=== PATIENT | female | born 1990 | race Caucasian/White ===

== ENCOUNTER 2017-05-23 14:35 | Emergency (ER) | payer MEDICAID ==
[~2017-05-23] VITALS: Ht 152.4 cm; Wt 51.8 kg
[2017-05-23 15:34] VITALS: BP 127/63
== END 2017-05-23 15:36 | disposition home or self-care (01) ==
LOC: EMS 14:38
DX: Z02.89 Encounter for other administrative examinations (principal); F12.90 Cannabis use, unspecified, uncomplicated; F17.210 Nicotine dependence, cigarettes, uncomplicated
CPT/HCPCS: 99283

== ENCOUNTER 2018-06-25 02:15 | Inpatient (IN) | payer MEDICAID ==
[~2018-06-25] VITALS: Ht 157.5 cm; Wt 50.0 kg
[2018-06-25] MEDS ORDERED: LORazepam 2 MG/ML VIAL IM ONE (03:00)
[2018-06-25] MEDS ORDERED: HALOPERIDOL LACTATE 5 MG/ML VIAL IM ONE (03:00)
[2018-06-25] MEDS ORDERED: DiphenhydrAMINE HCL 50 MG/ML VIAL IM ONE (03:00)
[2018-06-25] MEDS ORDERED: ZOLPIDEM TARTRATE 10 MG TABLET PO PRN (03:15)
[2018-06-25] MEDS ORDERED: HALOPERIDOL 5 MG TABLET PO PRN (03:15)
[2018-06-25 04:31] LABS: BASOPHILS % (AUTO) 0.6 % (0.0-2.0); EOSINOPHILS % (AUTO) 1.3 % (1.0-6.0); HEMATOCRIT 40.7 % (36-46); HEMOGLOBIN 13.7 g/dL (12.0-16.0); LYMPHOCYTES # (AUTO) 2.2 K/uL (1.0-4.8); MEAN CORPUSCULAR HEMOGLOBIN 31.8 pg (26.0-34.0); MEAN CORPUSCULAR HGB CONC 33.6 G/dL (31.0-37.0); MEAN CORPUSCULAR VOLUME 94 fL (80-100); MONOCYTES # (AUTO) 0.6 K/uL (0.1-1.0); MONOCYTES % (AUTO) 5.4 % (2.0-9.0); NEUTROPHILS # (AUTO) 7.7 K/uL (1.8-7.7); NEUTROPHILS % (AUTO) 71.7 % (40.0-70.0); PLATELET COUNT (AUTO) 242 K/uL (150-450); RED BLOOD CELL COUNT(AUTO) 4.32 MIL/uL (4.00-5.20); RED CELL DISTRIBUTION WIDTH 13.1 % (11.5-14.5)
[2018-06-25 04:39] LABS: ANION GAP 8 mmol/L (8-16); CALCIUM, TOTAL 8.9 mg/dL (8.8-10.5); CARBON DIOXIDE 25 mmol/L (22-29); CHLORIDE 105 mmol/L (98-107); CREATININE 0.79 mg/dL (0.60-1.30); GLOMERULAR FILTR. RATE CALC > 60 mL/min (>60); GLUCOSE,RANDOM 93 mg/dL (70-110); POTASSIUM 3.8 mmol/L (3.5-5.1); SODIUM SERUM 138 mmol/L (136-145); UREA NITROGEN, BLOOD 14 mg/dL (7-18)
[2018-06-25 04:46] LABS: ALANINE AMINOTRANSFERASE 16 U/L (12-78); ALBUMIN 3.4 g/dL (3.4-5.0); ALKALINE PHOSPHATASE 100 U/L (46-116); ASPARTATE AMINOTRANSFERASE 18 U/L (15-37); BILIRUBIN,TOTAL 0.5 mg/dL (0.1-1.0); TOTAL PROTEIN, SERUM 6.4 g/dL (6.4-8.2)
[2018-06-25 18:11] VITALS: BP 103/69
[2018-06-25] MEDS ORDERED: GuaiFENesin/D-METHORPHAN [SUGAR-FREE] 200-20MG/10 ML SYRUP UDCUP PO PRN (18:45)
[2018-06-25] MEDS ORDERED: MAG HYDROX/AL HYDROX/SIMETH ES 30 ML SUSPENSION UDCUP PO PRN (18:45)
[2018-06-25] MEDS ORDERED: NICOTINE 14 MG/24 HOUR PATCH TD PRN (18:45)
[2018-06-25] MEDS ORDERED: CloNIDine HCL 0.1 MG TABLET PO PRN (18:45)
[2018-06-25] MEDS ORDERED: LOPERAMIDE HCL 2 MG CAPSULE PO PRN (18:45)
[2018-06-25] MEDS ORDERED: ALBUTEROL SULFATE HFA 90 MCG/PUFF 8 GM INHALER IH PRN (18:45)
[2018-06-25] MEDS ORDERED: MAGNESIUM HYDROXIDE SUSPENSION 30 ML UDCUP PO PRN (18:45)
[2018-06-25] MEDS ORDERED: DOCUSATE SODIUM 100 MG CAPSULE PO PRN (18:45)
[2018-06-25] MEDS ORDERED: PETROLATUM,WHITE 71 GM JELLY TP PRN (18:45)
[2018-06-25] MEDS ORDERED: ONDANSETRON HCL 4 MG TABLET PO PRN (18:45)
[2018-06-25] MEDS ORDERED: ACETAMINOPHEN 325 MG TABLET PO PRN (18:45)
[2018-06-27] MEDS ORDERED: LORazepam 2 MG/ML VIAL ONE (09:55)
[2018-06-27] MEDS ORDERED: HALOPERIDOL LACTATE 5 MG/ML VIAL IM ONE (10:00)
[2018-06-27] MEDS ORDERED: LORazepam 2 MG/ML VIAL IM ONE (10:00)
[2018-06-27] MEDS ORDERED: DiphenhydrAMINE HCL 50 MG/ML VIAL IM ONE (10:00)
[2018-06-27] MEDS: OLANZapine 5 MG RAPDIS TABLET PO SCH (21:00)
[2018-06-28] MEDS: LORazepam 2 MG TABLET PO PRN (09:12)
[2018-06-28] MEDS: OLANZapine 5 MG RAPDIS TABLET PO PRN (09:18)
[2018-06-28] MEDS: OLANZapine 5 MG RAPDIS TABLET PO SCH (21:00)
[2018-06-29] MEDS: BACITRACIN 28.4 GM OINTMENT TP SCH ×3 (08:30→16:15)
[2018-06-29] MEDS: LORazepam 2 MG TABLET PO PRN ×2 (08:40→16:14)
[2018-06-29] MEDS: OLANZapine 5 MG RAPDIS TABLET PO PRN (08:40)
[2018-06-29] MEDS: OLANZapine 5 MG RAPDIS TABLET PO SCH (22:21)
[2018-06-30] MEDS: IBUPROFEN 400 MG TABLET PO PRN (01:00)
[2018-06-30] MEDS: LORazepam 2 MG TABLET PO PRN ×2 (08:07→14:13)
[2018-06-30] MEDS: OLANZapine 5 MG RAPDIS TABLET PO PRN ×2 (08:09→14:13)
[2018-06-30] MEDS: BACITRACIN 28.4 GM OINTMENT TP SCH ×2 (09:00→16:25)
[2018-06-30 10:08] LABS: APPEARANCE,URINE CLOUDY (CLEAR); BILIRUBIN,URINE NEGATIVE (NEGATIVE); GLUCOSE, URINE (UA) NEGATIVE (NEGATIVE); KETONES,URINE NEGATIVE (NEGATIVE); LEUKOCYTE ESTERASE ,URINE TRACE (NEGATIVE); NITRATE,URINE NEGATIVE (NEGATIVE); OCCULT BLOOD,URINE NEGATIVE (NEGATIVE); PROTEIN,URINE NEGATIVE (NEGATIVE); UROBILINOGEN,URINE 0.2 mg/dL (<=1.0)
[2018-06-30 10:12] LABS: AMPHET/METH SCREEN,URINE NEGATIVE (NEGATIVE); BARBITURATE SCREEN, URINE NEGATIVE (NEGATIVE); BENZODIAZEPINES SCREEN,URINE NEGATIVE (NEGATIVE); CANNABINOID SCREEN,URINE POSITIVE (NEGATIVE); COCAINE SCREEN,URINE NEGATIVE (NEGATIVE); METHADONE SCREEN, URINE NEGATIVE (NEGATIVE); OPIATE SCREEN,URINE NEGATIVE (NEGATIVE); PHENCYCLIDINE SCREEN,URINE NEGATIVE (NEGATIVE)
[2018-06-30 10:26] LABS: BACTERIA,URINE None Seen /HPF (None Seen); RBC,URINE None Seen /HPF (0-2); SQUAMOUS EPITHELIAL CELL,UR Many /LPF (None Seen); WBC,URINE 0-2 /HPF (0-5)
[2018-06-30 16:50] VITALS: BP 91/76
[2018-06-30] MEDS: OLANZapine 5 MG RAPDIS TABLET PO SCH (20:18)
[2018-07-01] MEDS: BACITRACIN 28.4 GM OINTMENT TP SCH ×2 (08:49→16:37)
[2018-07-01] MEDS: LORazepam 2 MG TABLET PO PRN ×2 (08:51→16:50)
[2018-07-01] MEDS: OLANZapine 5 MG RAPDIS TABLET PO PRN ×2 (08:51→16:50)
[2018-07-01 08:58] VITALS: BP 112/60
[2018-07-01 18:02] VITALS: BP 115/76
[2018-07-01] MEDS: OLANZapine 5 MG RAPDIS TABLET PO SCH (20:33)
[2018-07-02] MEDS: BACITRACIN 28.4 GM OINTMENT TP SCH ×2 (08:26→17:12)
[2018-07-02] MEDS: OLANZapine 5 MG RAPDIS TABLET PO PRN ×2 (08:45→16:01)
[2018-07-02] MEDS: LORazepam 2 MG TABLET PO PRN ×2 (08:45→16:01)
[2018-07-02 17:07] VITALS: BP 121/68
[2018-07-02] MEDS: OLANZapine 5 MG RAPDIS TABLET PO SCH (20:35)
[2018-07-03] MEDS: OLANZapine 5 MG RAPDIS TABLET PO PRN ×2 (08:28→16:58)
[2018-07-03] MEDS: NALTREXONE HCL 50 MG TABLET PO SCH (08:28)
[2018-07-03] MEDS: LORazepam 2 MG TABLET PO PRN ×2 (08:28→16:57)
[2018-07-03 08:31] VITALS: BP 115/71
[2018-07-03] MEDS: BACITRACIN 28.4 GM OINTMENT TP SCH ×2 (09:00→16:59)
[2018-07-03] MEDS: IBUPROFEN 400 MG TABLET PO PRN (09:47)
[2018-07-03 16:54] VITALS: BP 109/67
[2018-07-03] MEDS: OLANZapine 10 MG RAPDIS TABLET PO SCH (20:13)
[2018-07-04] MEDS: LORazepam 2 MG TABLET PO PRN ×2 (07:46→17:52)
[2018-07-04] MEDS: OLANZapine 5 MG RAPDIS TABLET PO PRN (07:46)
[2018-07-04] MEDS: IBUPROFEN 400 MG TABLET PO PRN (08:10)
[2018-07-04] MEDS: NALTREXONE HCL 50 MG TABLET PO SCH (08:10)
[2018-07-04] MEDS: BACITRACIN 28.4 GM OINTMENT TP SCH ×2 (09:12→16:30)
[2018-07-04 17:51] VITALS: BP 107/67
[2018-07-04] MEDS: OLANZapine 10 MG RAPDIS TABLET PO SCH (20:15)
[2018-07-05 08:41] VITALS: BP 108/60
[2018-07-05] MEDS: NALTREXONE HCL 50 MG TABLET PO SCH (09:00)
[2018-07-05] MEDS: BACITRACIN 28.4 GM OINTMENT TP SCH ×2 (09:00→16:12)
[2018-07-05] MEDS: LORazepam 2 MG TABLET PO PRN (16:11)
[2018-07-05 16:19] VITALS: BP 100/65
[2018-07-05] MEDS ORDERED: OLAN10TA22 PO (16:23)
[2018-07-05] MEDS ORDERED: NALT50TA PO (16:23)
[2018-07-05] MEDS: OLANZapine 10 MG RAPDIS TABLET PO SCH (20:39)
[2018-07-06 08:00] VITALS: BP 104/68
[2018-07-06] MEDS: NALTREXONE HCL 50 MG TABLET PO SCH (08:05)
[2018-07-06] MEDS: OLANZapine 5 MG RAPDIS TABLET PO PRN (08:05)
[2018-07-06] MEDS: LORazepam 2 MG TABLET PO PRN (08:05)
[2018-07-06] MEDS: BACITRACIN 28.4 GM OINTMENT TP SCH (10:45)
== END 2018-07-06 13:00 | disposition home or self-care (01) | DRG 750 ==
LOC: EMS 02:16 → 3EC 16:32
PROVIDERS: ADMIT Psychiatry & Neurology Psychiatry; ATTEND Psychiatry & Neurology Psychiatry
DX: F20.0 Paranoid schizophrenia (principal); Z91.19 Patient's noncompliance with other medical treatment and regimen; F10.10 Alcohol abuse, uncomplicated; G47.00 Insomnia, unspecified; F12.90 Cannabis use, unspecified, uncomplicated; F19.10 Other psychoactive substance abuse, uncomplicated; Z71.41 Alcohol abuse counseling and surveillance of alcoholic; Z81.8 Family history of other mental and behavioral disorders; Z87.891 Personal history of nicotine dependence; Z71.51 Drug abuse counseling and surveillance of drug abuser
CPT/HCPCS: 96372; 99291; G0480; J1200; J1630; J2060

== ENCOUNTER 2018-07-07 19:18 | Emergency (ER) | payer MEDICAID ==
[~2018-07-07] VITALS: Ht 152.4 cm; Wt 45.5 kg
[~2018-07-07 19:18] MED LIST: NALT50TA PO; OLAN10TA22 PO
[2018-07-07 19:29] VITALS: BP 139/84
== END 2018-07-07 19:58 | disposition home or self-care (01) ==
LOC: EMS 19:20
DX: F25.9 Schizoaffective disorder, unspecified (principal); F17.210 Nicotine dependence, cigarettes, uncomplicated; F19.10 Other psychoactive substance abuse, uncomplicated; Z79.899 Other long term (current) drug therapy
CPT/HCPCS: 99281

== ENCOUNTER 2018-07-15 14:14 | Emergency (ER) | payer MEDICAID | END 2018-07-15 14:41 | disposition left against medical advice (07) | LOC: EMS 14:16 | DX: R22.0 Localized swelling, mass and lump, head (principal); Z53.21 Procedure and treatment not carried out due to patient leaving prior to being seen by health care provider ==

== ENCOUNTER 2018-07-17 01:10 | Emergency (ER) | payer MEDICAID ==
[~2018-07-17] VITALS: Ht 152.4 cm; Wt 48.2 kg
[2018-07-17 01:11] VITALS: BP 124/88
== END 2018-07-17 03:02 | disposition left against medical advice (07) ==
LOC: EMS 01:10
DX: R68.84 Jaw pain (principal); Z53.21 Procedure and treatment not carried out due to patient leaving prior to being seen by health care provider

== ENCOUNTER 2019-12-21 15:08 | Emergency (ER) | payer MEDICAID ==
[~2019-12-21] VITALS: Ht 160 cm; Wt 52.0 kg
[~2019-12-21 15:08] MED LIST changes: -NALT50TA PO; -OLAN10TA22 PO; +OLAN7.5T9 PO
[2019-12-21 15:16] VITALS: BP 115/85
== END 2019-12-21 16:23 | disposition left against medical advice (07) ==
LOC: EMS 15:10
DX: M79.673 Pain in unspecified foot (principal); Z53.21 Procedure and treatment not carried out due to patient leaving prior to being seen by health care provider

== ENCOUNTER 2020-01-17 10:41 | Inpatient (IN) | payer MEDICAID ==
[~2020-01-17] VITALS: Ht 149.9 cm; Wt 45.5 kg
[2020-01-17] MEDS ORDERED: LORazepam 2 MG/ML VIAL IM ONE (11:45)
[2020-01-17] MEDS ORDERED: ZOLPIDEM TARTRATE 10 MG TABLET PO PRN (12:30)
[2020-01-17] MEDS ORDERED: OLANZapine 5 MG RAPDIS TABLET PO PRN (12:30)
[2020-01-17 14:21] VITALS: BP 134/84
[2020-01-17 16:18] VITALS: BP 157/97
[2020-01-17] MEDS: LORazepam 2 MG TABLET PO PRN (16:18)
[2020-01-18] MEDS ORDERED: LOPERAMIDE HCL 2 MG CAPSULE PO PRN (14:15)
[2020-01-18] MEDS ORDERED: ACETAMINOPHEN 325 MG TABLET PO PRN (14:15)
[2020-01-18] MEDS ORDERED: ONDANSETRON HCL 4 MG TABLET PO PRN (14:15)
[2020-01-18] MEDS ORDERED: ALBUTEROL SULFATE HFA 90 MCG/PUFF 8 GM INHALER IH PRN (14:15)
[2020-01-18] MEDS ORDERED: MAG HYDROX/AL HYDROX/SIMETH ES 30 ML SUSPENSION UDCUP PO PRN (14:15)
[2020-01-18] MEDS ORDERED: OMEPRAZOLE 20 MG CAPSULE PO PRN (14:15)
[2020-01-18] MEDS ORDERED: MAGNESIUM HYDROXIDE SUSPENSION 30 ML UDCUP PO PRN (14:15)
[2020-01-18] MEDS ORDERED: PETROLATUM,WHITE 28 GM JELLY TP PRN (14:15)
[2020-01-18] MEDS ORDERED: CloNIDine HCL 0.1 MG TABLET PO PRN (14:15)
[2020-01-18] MEDS ORDERED: DOCUSATE SODIUM 100 MG CAPSULE PO PRN (14:15)
[2020-01-18] MEDS ORDERED: IBUPROFEN 600 MG TABLET PO PRN (14:15)
[2020-01-18] MEDS ORDERED: BENZOCAINE/MENTHOL LOZENGE MM PRN (14:15)
[2020-01-18] MEDS ORDERED: BACITRACIN 28.4 GM OINTMENT TP PRN (14:15)
[2020-01-18] MEDS: LORazepam 2 MG TABLET PO PRN (15:48)
[2020-01-18] MEDS: OLANZapine 5 MG TABLET PO SCH (16:42)
[2020-01-18] MEDS: CEPHALEXIN MONOHYDRATE 500 MG CAPSULE PO SCH (16:42)
[2020-01-19] MEDS: CEPHALEXIN MONOHYDRATE 500 MG CAPSULE PO SCH ×3 (09:22→17:13)
[2020-01-19] MEDS: OLANZapine 5 MG TABLET PO SCH ×2 (09:22→17:13)
[2020-01-19 16:35] VITALS: BP 136/82
[2020-01-20] MEDS: CEPHALEXIN MONOHYDRATE 500 MG CAPSULE PO SCH ×2 (08:07→12:21)
[2020-01-20] MEDS: OLANZapine 5 MG TABLET PO SCH (08:07)
[2020-01-20] MEDS ORDERED: OLAN5TAB2 PO (10:43)
[2020-01-20] MEDS ORDERED: CEPH-582 PO (10:45)
[2020-01-20 11:48] VITALS: BP 103/71
== END 2020-01-20 14:00 | disposition home or self-care (01) | DRG 885 ==
LOC: EMS 10:48 → 3EC 12:51
PROVIDERS: ADMIT Psychiatry & Neurology Psychiatry; ATTEND Psychiatry & Neurology Psychiatry
DX: F25.9 Schizoaffective disorder, unspecified (principal); F15.10 Other stimulant abuse, uncomplicated; F11.90 Opioid use, unspecified, uncomplicated; F17.210 Nicotine dependence, cigarettes, uncomplicated; K59.00 Constipation, unspecified; F41.9 Anxiety disorder, unspecified; Z59.0 Homelessness; Z88.8 Allergy status to other drugs, medicaments and biological substances
CPT/HCPCS: 99291; J2060

== ENCOUNTER 2020-01-29 12:02 | Inpatient (IN) | payer MEDICAID ==
[~2020-01-29] VITALS: Ht 149.9 cm; Wt 48.9 kg
[~2020-01-29 12:02] MED LIST changes: +CEPH-582 PO; +OLAN5TAB2 PO; -OLAN7.5T9 PO
[2020-01-29] MEDS ORDERED: LORazepam 2 MG/ML VIAL IM ONE (13:15)
[2020-01-29] MEDS ORDERED: DiphenhydrAMINE HCL 50 MG/ML VIAL IM ONE (13:15)
[2020-01-29] MEDS ORDERED: FluPHENAZine HCL 2.5 MG/ML INJ IM ONE (13:15)
[2020-01-29] MEDS ORDERED: ZOLPIDEM TARTRATE 10 MG TABLET PO PRN (14:45)
[2020-01-29] MEDS ORDERED: OLANZapine 5 MG RAPDIS TABLET PO PRN (14:45)
[2020-01-29 16:08] LABS: BASOPHILS % (AUTO) 0.4 % (0.0-2.0); EOSINOPHILS % (AUTO) 0.4 % (1.0-6.0); HEMATOCRIT 37.9 % (36-46); HEMOGLOBIN 12.6 g/dL (12.0-16.0); LYMPHOCYTES # (AUTO) 2.5 K/uL (1.0-4.8); LYMPHOCYTES % (AUTO) 31.3 % (22.0-44.0); MEAN CORPUSCULAR HEMOGLOBIN 31.4 pg (26.0-34.0); MEAN CORPUSCULAR HGB CONC 33.1 G/dL (31.0-37.0); MEAN CORPUSCULAR VOLUME 95 fL (80-100); MONOCYTES # (AUTO) 0.6 K/uL (0.1-1.0); MONOCYTES % (AUTO) 7.4 % (2.0-9.0); NEUTROPHILS # (AUTO) 4.9 K/uL (1.8-7.7); NEUTROPHILS % (AUTO) 60.5 % (40.0-70.0); PLATELET COUNT (AUTO) 263 K/uL (150-450)
[2020-01-29 16:17] LABS: ANION GAP 17 mmol/L (8-16); CALCIUM, TOTAL 8.7 mg/dL (8.8-10.5); CARBON DIOXIDE 19 mmol/L (22-29); CHLORIDE 103 mmol/L (98-107); CREATININE 0.69 mg/dL (0.60-1.30); GLOMERULAR FILTR. RATE CALC > 60 mL/min (>60); GLUCOSE,RANDOM 71 mg/dL (70-110); POTASSIUM 3.3 mmol/L (3.5-5.1); SODIUM SERUM 139 mmol/L (136-145); UREA NITROGEN, BLOOD 8 mg/dL (7-18)
[2020-01-29 16:29] LABS: ALANINE AMINOTRANSFERASE 18 U/L (12-78); ALBUMIN 3.9 g/dL (3.4-5.0); ALKALINE PHOSPHATASE 69 U/L (46-116); ASPARTATE AMINOTRANSFERASE 18 U/L (15-37); HCG,QUANTITATIVE < 1 mIU/mL (0-6); TOTAL PROTEIN, SERUM 7.1 g/dL (6.4-8.2)
[2020-01-29 18:24] VITALS: BP 99/60
[2020-01-29] MEDS: OLANZapine 5 MG TABLET PO SCH (22:23)
[2020-01-29] MEDS: CEPHALEXIN MONOHYDRATE 500 MG CAPSULE PO SCH (22:23)
[2020-01-30] MEDS ORDERED: MAGNESIUM HYDROXIDE SUSPENSION 30 ML UDCUP PO PRN (05:15)
[2020-01-30] MEDS ORDERED: ALBUTEROL SULFATE HFA 90 MCG/PUFF 8 GM INHALER IH PRN (05:15)
[2020-01-30] MEDS ORDERED: ONDANSETRON HCL 4 MG TABLET PO PRN (05:15)
[2020-01-30] MEDS ORDERED: BACITRACIN 28.4 GM OINTMENT TP PRN (05:15)
[2020-01-30] MEDS ORDERED: IBUPROFEN 600 MG TABLET PO PRN (05:15)
[2020-01-30] MEDS ORDERED: BENZOCAINE/MENTHOL LOZENGE MM PRN (05:15)
[2020-01-30] MEDS ORDERED: LOPERAMIDE HCL 2 MG CAPSULE PO PRN (05:15)
[2020-01-30] MEDS ORDERED: CloNIDine HCL 0.1 MG TABLET PO PRN (05:15)
[2020-01-30] MEDS ORDERED: MAG HYDROX/AL HYDROX/SIMETH ES 30 ML SUSPENSION UDCUP PO PRN (05:15)
[2020-01-30] MEDS ORDERED: PETROLATUM,WHITE 28 GM JELLY TP PRN (05:15)
[2020-01-30] MEDS ORDERED: ACETAMINOPHEN 325 MG TABLET PO PRN (05:15)
[2020-01-30] MEDS: CEPHALEXIN MONOHYDRATE 500 MG CAPSULE PO SCH ×3 (08:24→16:18)
[2020-01-30] MEDS: DOCUSATE SODIUM 100 MG CAPSULE PO SCH (08:24)
[2020-01-30] MEDS: OMEPRAZOLE 20 MG CAPSULE PO SCH (08:24)
[2020-01-30] MEDS: OLANZapine 5 MG TABLET PO SCH ×2 (08:35→16:18)
[2020-01-30] MEDS ORDERED: POTASSIUM CHLORIDE 20 MEQ ER TABLET PO ONE (15:30)
[2020-01-31] MEDS: OLANZapine 5 MG TABLET PO SCH ×2 (09:39→16:37)
[2020-01-31] MEDS: DOCUSATE SODIUM 100 MG CAPSULE PO SCH (09:39)
[2020-01-31] MEDS: OMEPRAZOLE 20 MG CAPSULE PO SCH (09:39)
[2020-01-31] MEDS: CEPHALEXIN MONOHYDRATE 500 MG CAPSULE PO SCH ×3 (09:39→16:37)
[2020-02-01] MEDS: OMEPRAZOLE 20 MG CAPSULE PO SCH (09:50)
[2020-02-01] MEDS: CEPHALEXIN MONOHYDRATE 500 MG CAPSULE PO SCH ×3 (09:50→16:23)
[2020-02-01] MEDS: DOCUSATE SODIUM 100 MG CAPSULE PO SCH (09:50)
[2020-02-01] MEDS: OLANZapine 5 MG TABLET PO SCH ×2 (09:51→16:23)
[2020-02-01] MEDS: LORazepam 2 MG TABLET PO PRN (10:27)
[2020-02-01 11:21] VITALS: BP 133/71
[2020-02-01 16:00] VITALS: BP 110/73
[2020-02-02] MEDS: DOCUSATE SODIUM 100 MG CAPSULE PO SCH (08:32)
[2020-02-02] MEDS: OLANZapine 5 MG TABLET PO SCH ×2 (08:32→16:08)
[2020-02-02] MEDS: CEPHALEXIN MONOHYDRATE 500 MG CAPSULE PO SCH ×3 (08:32→16:08)
[2020-02-02] MEDS: OMEPRAZOLE 20 MG CAPSULE PO SCH (08:32)
[2020-02-02 08:45] VITALS: BP 117/60
[2020-02-02 08:50] VITALS: BP 116/70
[2020-02-02] MEDS: LORazepam 2 MG TABLET PO PRN ×2 (08:51→17:03)
[2020-02-02 18:25] VITALS: BP 119/61
[2020-02-03] MEDS: DOCUSATE SODIUM 100 MG CAPSULE PO SCH (08:34)
[2020-02-03] MEDS: OMEPRAZOLE 20 MG CAPSULE PO SCH (08:34)
[2020-02-03] MEDS: CEPHALEXIN MONOHYDRATE 500 MG CAPSULE PO SCH ×3 (08:34→16:29)
[2020-02-03] MEDS: OLANZapine 5 MG TABLET PO SCH (08:34)
[2020-02-03] MEDS: LORazepam 2 MG TABLET PO PRN (09:15)
[2020-02-03 09:39] VITALS: BP 123/63
[2020-02-03] MEDS: GABAPENTIN 300 MG CAPSULE PO SCH (16:29)
[2020-02-03] MEDS: OLANZapine 7.5 MG TABLET PO SCH (16:29)
[2020-02-04] MEDS: LORazepam 2 MG TABLET PO PRN (08:43)
[2020-02-04] MEDS: OLANZapine 7.5 MG TABLET PO SCH ×2 (08:43→16:30)
[2020-02-04] MEDS: CEPHALEXIN MONOHYDRATE 500 MG CAPSULE PO SCH ×3 (08:43→16:30)
[2020-02-04] MEDS: OMEPRAZOLE 20 MG CAPSULE PO SCH (08:43)
[2020-02-04] MEDS: GABAPENTIN 300 MG CAPSULE PO SCH ×2 (08:43→16:30)
[2020-02-04] MEDS: DOCUSATE SODIUM 100 MG CAPSULE PO SCH (08:43)
[2020-02-04 16:19] VITALS: BP 96/62
[2020-02-05] MEDS: OLANZapine 7.5 MG TABLET PO SCH ×2 (07:56→16:45)
[2020-02-05] MEDS: OMEPRAZOLE 20 MG CAPSULE PO SCH (07:56)
[2020-02-05] MEDS: GABAPENTIN 300 MG CAPSULE PO SCH ×2 (07:56→16:44)
[2020-02-05] MEDS: DOCUSATE SODIUM 100 MG CAPSULE PO SCH (07:56)
[2020-02-05] MEDS: CEPHALEXIN MONOHYDRATE 500 MG CAPSULE PO SCH ×2 (07:56→12:00)
[2020-02-05] MEDS: LORazepam 2 MG TABLET PO PRN (07:56)
[2020-02-05 09:16] VITALS: BP 90/53
[2020-02-05 17:13] VITALS: BP 96/69
[2020-02-05 17:51] VITALS: BP 102/66
[2020-02-06] MEDS: GABAPENTIN 300 MG CAPSULE PO SCH ×2 (08:18→16:56)
[2020-02-06] MEDS: OMEPRAZOLE 20 MG CAPSULE PO SCH (08:18)
[2020-02-06] MEDS: THIAMINE 100 MG TABLET PO SCH (08:18)
[2020-02-06] MEDS: MULTIVITAMINS WITH MINERALS, THERAPEUTIC TABLET PO SCH (08:18)
[2020-02-06] MEDS: FOLIC ACID 1 MG TABLET PO SCH (08:18)
[2020-02-06] MEDS: DOCUSATE SODIUM 100 MG CAPSULE PO SCH (08:18)
[2020-02-06] MEDS: LORazepam 2 MG TABLET PO PRN (08:19)
[2020-02-06] MEDS: OLANZapine 7.5 MG TABLET PO SCH ×2 (08:19→16:56)
[2020-02-06 13:04] VITALS: BP 101/66
[2020-02-06 19:16] VITALS: BP 113/62
[2020-02-07 08:00] VITALS: BP 108/61
[2020-02-07] MEDS: MULTIVITAMINS WITH MINERALS, THERAPEUTIC TABLET PO SCH (08:04)
[2020-02-07] MEDS: OMEPRAZOLE 20 MG CAPSULE PO SCH (08:04)
[2020-02-07] MEDS: FOLIC ACID 1 MG TABLET PO SCH (08:04)
[2020-02-07] MEDS: THIAMINE 100 MG TABLET PO SCH (08:04)
[2020-02-07] MEDS: OLANZapine 7.5 MG TABLET PO SCH ×2 (08:04→16:13)
[2020-02-07] MEDS: DOCUSATE SODIUM 100 MG CAPSULE PO SCH (08:04)
[2020-02-07] MEDS: GABAPENTIN 300 MG CAPSULE PO SCH ×2 (08:04→16:13)
[2020-02-07 20:50] VITALS: BP 123/71
[2020-02-08] MEDS: OMEPRAZOLE 20 MG CAPSULE PO SCH (08:35)
[2020-02-08] MEDS: MULTIVITAMINS WITH MINERALS, THERAPEUTIC TABLET PO SCH (08:35)
[2020-02-08] MEDS: THIAMINE 100 MG TABLET PO SCH (08:35)
[2020-02-08] MEDS: GABAPENTIN 300 MG CAPSULE PO SCH ×2 (08:35→16:13)
[2020-02-08] MEDS: OLANZapine 7.5 MG TABLET PO SCH ×2 (08:35→16:13)
[2020-02-08] MEDS: FOLIC ACID 1 MG TABLET PO SCH (08:35)
[2020-02-08] MEDS: DOCUSATE SODIUM 100 MG CAPSULE PO SCH (08:35)
[2020-02-08 09:44] VITALS: BP 107/63
[2020-02-09] MEDS: GABAPENTIN 300 MG CAPSULE PO SCH ×2 (08:55→16:48)
[2020-02-09] MEDS: OMEPRAZOLE 20 MG CAPSULE PO SCH (08:55)
[2020-02-09] MEDS: FOLIC ACID 1 MG TABLET PO SCH (08:55)
[2020-02-09] MEDS: OLANZapine 7.5 MG TABLET PO SCH ×2 (08:55→16:48)
[2020-02-09] MEDS: MULTIVITAMINS WITH MINERALS, THERAPEUTIC TABLET PO SCH (08:55)
[2020-02-09] MEDS: THIAMINE 100 MG TABLET PO SCH (08:56)
[2020-02-09] MEDS: DOCUSATE SODIUM 100 MG CAPSULE PO SCH (08:56)
[2020-02-09 10:06] VITALS: BP 120/74
[2020-02-09 19:30] VITALS: BP 111/64
[2020-02-10 08:00] VITALS: BP 106/48
[2020-02-10] MEDS: MULTIVITAMINS WITH MINERALS, THERAPEUTIC TABLET PO SCH (08:38)
[2020-02-10] MEDS: FOLIC ACID 1 MG TABLET PO SCH (08:38)
[2020-02-10] MEDS: THIAMINE 100 MG TABLET PO SCH (08:38)
[2020-02-10] MEDS: OMEPRAZOLE 20 MG CAPSULE PO SCH (08:38)
[2020-02-10] MEDS: DOCUSATE SODIUM 100 MG CAPSULE PO SCH (08:38)
[2020-02-10] MEDS: GABAPENTIN 300 MG CAPSULE PO SCH (08:38)
[2020-02-10] MEDS: OLANZapine 7.5 MG TABLET PO SCH (08:38)
[2020-02-10] MEDS ORDERED: GABA-1181 PO (13:08)
[2020-02-10] MEDS ORDERED: OLAN7.5T2 PO (13:08)
[2020-02-10] MEDS ORDERED: DOCU-275 PO (13:09)
[2020-02-10] MEDS ORDERED: THIA100T80 PO (13:16)
[2020-02-10] MEDS ORDERED: OMEP20 PO (13:17)
== END 2020-02-10 14:51 | disposition home or self-care (01) | DRG 885 ==
LOC: EMS 12:02 → 3EC 16:13
PROVIDERS: ADMIT Psychiatry & Neurology Psychiatry; ATTEND Psychiatry & Neurology Psychiatry
DX: F25.0 Schizoaffective disorder, bipolar type (principal); Z88.8 Allergy status to other drugs, medicaments and biological substances; F10.20 Alcohol dependence, uncomplicated; F15.10 Other stimulant abuse, uncomplicated; F11.90 Opioid use, unspecified, uncomplicated; F17.210 Nicotine dependence, cigarettes, uncomplicated; F41.9 Anxiety disorder, unspecified; K59.00 Constipation, unspecified; F19.10 Other psychoactive substance abuse, uncomplicated; E87.6 Hypokalemia; G47.00 Insomnia, unspecified; Z59.0 Homelessness; Z91.19 Patient's noncompliance with other medical treatment and regimen; Z91.14 Patient's other noncompliance with medication regimen; Z91.5 Personal history of self-harm; Y90.9 Presence of alcohol in blood, level not specified
CPT/HCPCS: 87081; 99291; G0480; J1200; J2060; J3490

== ENCOUNTER 2020-04-23 20:10 | Inpatient (IN) | payer MEDICAID ==
[~2020-04-23 20:10] MED LIST changes: -CEPH-582 PO; +DOCU-275 PO; +GABA-1181 PO; -OLAN5TAB2 PO; +OLAN7.5T2 PO; +OMEP20 PO; +THIA100T80 PO
[2020-04-23] MEDS ORDERED: ZOLPIDEM TARTRATE 10 MG TABLET PO PRN (22:15)
[2020-04-23 22:23] VITALS: BP 103/60
[2020-04-24 01:33] VITALS: BP 105/72
[2020-04-24] MEDS ORDERED: LOPERAMIDE HCL 2 MG CAPSULE PO PRN (07:00)
[2020-04-24] MEDS ORDERED: PETROLATUM,WHITE 28 GM JELLY TP PRN (07:00)
[2020-04-24] MEDS ORDERED: ONDANSETRON HCL 4 MG TABLET PO PRN (07:00)
[2020-04-24] MEDS ORDERED: MAGNESIUM HYDROXIDE SUSPENSION 30 ML UDCUP PO PRN (07:00)
[2020-04-24] MEDS ORDERED: BACITRACIN 28.4 GM OINTMENT TP PRN (07:00)
[2020-04-24] MEDS ORDERED: CloNIDine HCL 0.1 MG TABLET PO PRN (07:00)
[2020-04-24] MEDS ORDERED: BENZOCAINE/MENTHOL LOZENGE MM PRN (07:00)
[2020-04-24] MEDS ORDERED: IBUPROFEN 600 MG TABLET PO PRN (07:00)
[2020-04-24] MEDS ORDERED: MAG HYDROX/AL HYDROX/SIMETH ES 30 ML SUSPENSION UDCUP PO PRN (07:00)
[2020-04-24] MEDS ORDERED: ALBUTEROL SULFATE HFA 90 MCG/PUFF 8 GM INHALER IH PRN (07:00)
[2020-04-24] MEDS ORDERED: OMEPRAZOLE 20 MG CAPSULE PO PRN (07:00)
[2020-04-24] MEDS ORDERED: ACETAMINOPHEN 325 MG TABLET PO PRN (07:00)
[2020-04-24] MEDS ORDERED: DOCUSATE SODIUM 100 MG CAPSULE PO PRN (07:00)
[2020-04-24 08:23] VITALS: BP 116/68
[2020-04-24] MEDS: SULFAMETHOX/TRIMETH DS 800-160 MG/TABLET PO SCH ×2 (09:41→16:41)
[2020-04-24] MEDS: MUPIROCIN CALCIUM 2% 15 GM CREAM TP SCH ×2 (10:02→16:41)
[2020-04-24] MEDS: LORazepam 2 MG TABLET PO PRN (10:07)
[2020-04-24] MEDS: OLANZapine 7.5 MG TABLET PO SCH ×2 (13:15→16:41)
[2020-04-24] MEDS: GABAPENTIN 300 MG CAPSULE PO SCH ×2 (13:15→16:41)
[2020-04-25] MEDS: OLANZapine 7.5 MG TABLET PO SCH ×2 (09:04→17:03)
[2020-04-25] MEDS: SULFAMETHOX/TRIMETH DS 800-160 MG/TABLET PO SCH ×2 (09:04→17:02)
[2020-04-25] MEDS: GABAPENTIN 300 MG CAPSULE PO SCH ×2 (09:04→17:02)
[2020-04-25] MEDS: MUPIROCIN CALCIUM 2% 15 GM CREAM TP SCH ×2 (09:05→17:02)
[2020-04-25] MEDS: LORazepam 2 MG TABLET PO PRN ×2 (09:17→17:03)
[2020-04-26 03:54] VITALS: BP 102/74
[2020-04-26] MEDS: MUPIROCIN CALCIUM 2% 15 GM CREAM TP SCH ×2 (09:00→17:08)
[2020-04-26] MEDS: GABAPENTIN 300 MG CAPSULE PO SCH ×2 (09:26→17:39)
[2020-04-26] MEDS: OLANZapine 7.5 MG TABLET PO SCH ×2 (09:26→17:39)
[2020-04-26] MEDS: SULFAMETHOX/TRIMETH DS 800-160 MG/TABLET PO SCH ×2 (09:26→17:10)
[2020-04-26] MEDS: QUEtiapine FUMARATE 100 MG TABLET PO PRN (10:42)
[2020-04-26] MEDS: LORazepam 2 MG TABLET PO PRN ×2 (10:42→17:10)
[2020-04-27 02:02] VITALS: BP 110/70
[2020-04-27] MEDS: OLANZapine 7.5 MG TABLET PO SCH ×2 (08:59→16:01)
[2020-04-27] MEDS: MUPIROCIN CALCIUM 2% 15 GM CREAM TP SCH ×2 (08:59→17:00)
[2020-04-27] MEDS: GABAPENTIN 300 MG CAPSULE PO SCH ×2 (08:59→16:00)
[2020-04-27] MEDS: SULFAMETHOX/TRIMETH DS 800-160 MG/TABLET PO SCH ×2 (08:59→16:00)
[2020-04-27] MEDS: LORazepam 2 MG TABLET PO PRN ×2 (09:05→16:00)
[2020-04-27 17:56] VITALS: BP 98/63
[2020-04-27] MEDS: QUEtiapine FUMARATE 100 MG TABLET PO PRN (17:56)
[2020-04-28 01:19] VITALS: BP 102/68
[2020-04-28 08:00] VITALS: BP 116/74
[2020-04-28] MEDS: OLANZapine 7.5 MG TABLET PO SCH (08:13)
[2020-04-28] MEDS: MUPIROCIN CALCIUM 2% 15 GM CREAM TP SCH (08:13)
[2020-04-28] MEDS: LORazepam 2 MG TABLET PO PRN (08:13)
[2020-04-28] MEDS: GABAPENTIN 300 MG CAPSULE PO SCH (08:13)
[2020-04-28] MEDS: SULFAMETHOX/TRIMETH DS 800-160 MG/TABLET PO SCH (08:13)
[2020-04-28] MEDS ORDERED: SULF1TAB42 PO (14:48)
== END 2020-04-28 14:44 | disposition home or self-care (01) | DRG 885 ==
LOC: B3A 22:08
PROVIDERS: ADMIT Psychiatry & Neurology Psychiatry; ATTEND Psychiatry & Neurology Psychiatry
DX: F20.9 Schizophrenia, unspecified (principal); G47.00 Insomnia, unspecified; F41.9 Anxiety disorder, unspecified; K59.00 Constipation, unspecified; F15.10 Other stimulant abuse, uncomplicated; F19.10 Other psychoactive substance abuse, uncomplicated; Z59.0 Homelessness; Z72.0 Tobacco use; Z79.899 Other long term (current) drug therapy
CPT/HCPCS: 87081; Z7610

== ENCOUNTER 2020-12-19 20:19 | Inpatient (IN) | payer MEDICAID ==
[~2020-12-19] VITALS: Ht 157.5 cm; Wt 46.5 kg
[~2020-12-19 20:19] MED LIST changes: -DOCU-275 PO; -OMEP20 PO; +SULF1TAB42 PO; -THIA100T80 PO
[2020-12-19] MEDS ORDERED: ZIPRASIDONE MESYLATE 20 MG/VIAL IM ONE (23:00)
[2020-12-19] MEDS ORDERED: LORazepam 2 MG/ML VIAL IM ONE (23:00)
[2020-12-20] MEDS ORDERED: ZOLPIDEM TARTRATE 10 MG TABLET PO PRN
[2020-12-20] MEDS ORDERED: LORazepam 2 MG TABLET PO PRN
[2020-12-20 00:52] LABS: COVID AG,FIA SOURCE NASOPHARYNGEAL
[2020-12-20 01:22] LABS: BASOPHILS % (AUTO) 0.5 % (0.0-2.0); EOSINOPHILS % (AUTO) 0.8 % (1.0-6.0); HEMATOCRIT 38.8 % (36-46); LYMPHOCYTES # (AUTO) 2.8 K/uL (1.0-4.8); LYMPHOCYTES % (AUTO) 24.3 % (22.0-44.0); MEAN CORPUSCULAR HEMOGLOBIN 31.7 pg (26.0-34.0); MEAN CORPUSCULAR HGB CONC 33.6 G/dL (31.0-37.0); MEAN CORPUSCULAR VOLUME 94 fL (80-100); MONOCYTES # (AUTO) 0.6 K/uL (0.1-1.0); MONOCYTES % (AUTO) 5.6 % (2.0-9.0); NEUTROPHILS # (AUTO) 7.8 K/uL (1.8-7.7); NEUTROPHILS % (AUTO) 68.8 % (40.0-70.0); PLATELET COUNT (AUTO) 274 K/uL (150-450); RED CELL DISTRIBUTION WIDTH 12.9 % (11.5-14.5)
[2020-12-20 01:35] LABS: ANION GAP 11 mmol/L (8-16); CALCIUM, TOTAL 8.8 mg/dL (8.8-10.5); CARBON DIOXIDE 23 mmol/L (22-29); CHLORIDE 102 mmol/L (98-107); CREATININE 0.67 mg/dL (0.60-1.30); GLOMERULAR FILTR. RATE CALC > 60 mL/min (>60); GLUCOSE,RANDOM 104 mg/dL (70-110); POTASSIUM 3.8 mmol/L (3.5-5.1); SODIUM SERUM 136 mmol/L (136-145); UREA NITROGEN, BLOOD 13 mg/dL (7-18)
[2020-12-20 02:04] LABS: ALANINE AMINOTRANSFERASE 24 U/L (12-78); ALBUMIN 3.2 g/dL (3.4-5.0); ALKALINE PHOSPHATASE 58 U/L (46-116); ASPARTATE AMINOTRANSFERASE 29 U/L (15-37); BILIRUBIN,TOTAL 1.2 mg/dL (0.1-1.0); HCG,QUANTITATIVE 60754 mIU/mL (0-6); TOTAL PROTEIN, SERUM 6.4 g/dL (6.4-8.2)
[2020-12-20 03:01] LABS: CHOL/HDL RATIO 1.7 (3.9-5.7)
[2020-12-20] MEDS ORDERED: ZIPRASIDONE MESYLATE 20 MG/VIAL IM ONE (08:45)
[2020-12-20] MEDS ORDERED: ALBUTEROL SULFATE HFA 90 MCG/PUFF 8 GM INHALER IH PRN (13:30)
[2020-12-20] MEDS ORDERED: GuaiFENesin/D-METHORPHAN [SUGAR-FREE] 200-20MG/10 ML SYRUP UDCUP PO PRN (13:30)
[2020-12-20] MEDS ORDERED: MAG HYDROX/AL HYDROX/SIMETH ES 30 ML SUSPENSION UDCUP PO PRN (13:30)
[2020-12-20] MEDS ORDERED: DOCUSATE SODIUM 100 MG CAPSULE PO PRN (13:30)
[2020-12-20] MEDS ORDERED: LOPERAMIDE HCL 2 MG CAPSULE PO PRN (13:30)
[2020-12-20] MEDS ORDERED: ONDANSETRON HCL 4 MG TABLET PO PRN (13:30)
[2020-12-20] MEDS ORDERED: MAGNESIUM HYDROXIDE SUSPENSION 30 ML UDCUP PO PRN (13:30)
[2020-12-20] MEDS ORDERED: PETROLATUM,WHITE 28 GM JELLY TP PRN (13:30)
[2020-12-20] MEDS ORDERED: IBUPROFEN 400 MG TABLET PO PRN (13:30)
[2020-12-20] MEDS ORDERED: ACETAMINOPHEN 325 MG TABLET PO PRN (13:30)
[2020-12-20] MEDS ORDERED: CloNIDine HCL 0.1 MG TABLET PO PRN (13:30)
[2020-12-20] MEDS ORDERED: NICOTINE 14 MG/24 HOUR PATCH TD PRN (13:30)
[2020-12-20 16:00] VITALS: BP 104/57
[2020-12-21] MEDS: GABAPENTIN 100 MG CAPSULE PO SCH ×2 (13:16→16:27)
[2020-12-21 16:00] VITALS: BP 130/95
[2020-12-21] MEDS: OLANZapine 5 MG TABLET PO SCH (20:31)
[2020-12-22] MEDS: GABAPENTIN 100 MG CAPSULE PO SCH ×3 (08:19→16:38)
[2020-12-22] MEDS: OLANZapine 5 MG TABLET PO SCH (20:43)
[2020-12-23] MEDS: GABAPENTIN 100 MG CAPSULE PO SCH ×3 (08:18→16:36)
[2020-12-23] MEDS: OLANZapine 5 MG TABLET PO SCH (20:08)
[2020-12-24] MEDS: PRENATAL NO.137/IRON/FOLIC ACID TABLET PO SCH (11:14)
[2020-12-24] MEDS: GABAPENTIN 100 MG CAPSULE PO SCH ×3 (11:14→17:03)
[2020-12-24] MEDS: OLANZapine 5 MG TABLET PO SCH (20:41)
[2020-12-25] MEDS: PRENATAL NO.137/IRON/FOLIC ACID TABLET PO SCH (09:52)
[2020-12-25] MEDS: GABAPENTIN 100 MG CAPSULE PO SCH ×3 (09:52→16:26)
[2020-12-25] MEDS: OLANZapine 5 MG TABLET PO SCH (20:51)
[2020-12-26] MEDS: PRENATAL NO.137/IRON/FOLIC ACID TABLET PO SCH (08:48)
[2020-12-26] MEDS: GABAPENTIN 100 MG CAPSULE PO SCH ×3 (08:48→17:16)
[2020-12-26 16:12] VITALS: BP 120/81
[2020-12-26] MEDS: OLANZapine 5 MG TABLET PO SCH (21:00)
[2020-12-27] MEDS: GABAPENTIN 100 MG CAPSULE PO SCH ×3 (09:19→16:35)
[2020-12-27] MEDS: PRENATAL NO.137/IRON/FOLIC ACID TABLET PO SCH (09:19)
[2020-12-27] MEDS: OLANZapine 5 MG TABLET PO SCH (22:19)
[2020-12-28] MEDS: GABAPENTIN 100 MG CAPSULE PO SCH ×3 (08:25→16:24)
[2020-12-28] MEDS: PRENATAL NO.137/IRON/FOLIC ACID TABLET PO SCH (08:25)
[2020-12-28] MEDS: OLANZapine 5 MG TABLET PO SCH (20:12)
[2020-12-29] MEDS: PRENATAL NO.137/IRON/FOLIC ACID TABLET PO SCH (10:39)
[2020-12-29] MEDS: GABAPENTIN 100 MG CAPSULE PO SCH ×2 (10:39→14:00)
[2020-12-29] MEDS ORDERED: PREN-217 PO (12:28)
== END 2020-12-29 13:50 | disposition home or self-care (01) | DRG 566 ==
LOC: EMS 20:20 → 3EI 23:48
PROVIDERS: ADMIT Psychiatry & Neurology Psychiatry; ATTEND Psychiatry & Neurology Psychiatry
DX: O99.341 Other mental disorders complicating pregnancy, first trimester (principal); F20.9 Schizophrenia, unspecified; E44.0 Moderate protein-calorie malnutrition; D72.829 Elevated white blood cell count, unspecified; O26.891 Other specified pregnancy related conditions, first trimester; Z20.822 Contact with and (suspected) exposure to COVID-19; F11.90 Opioid use, unspecified, uncomplicated; Z59.0 Homelessness; Z88.8 Allergy status to other drugs, medicaments and biological substances; Z79.899 Other long term (current) drug therapy; Z87.891 Personal history of nicotine dependence
CPT/HCPCS: 76805; 87426; 99285; G0480; J2060; J3486

== ENCOUNTER 2021-11-17 10:56 | Inpatient (IN) | payer MEDICAID ==
[~2021-11-17] VITALS: Ht 152.4 cm; Wt 50.5 kg
[~2021-11-17 10:56] MED LIST changes: -OLAN7.5T2 PO; +OLAN7.5T22 PO; +PREN-217 PO; -SULF1TAB42 PO
[2021-11-17] MEDS ORDERED: LORazepam 2 MG/ML VIAL IM ONE ×2 (12:15→14:45)
[2021-11-17] MEDS ORDERED: DiphenhydrAMINE HCL 50 MG/ML VIAL IM ONE (12:15)
[2021-11-17] MEDS ORDERED: FluPHENAZine HCL 2.5 MG/ML INJ IM ONE (12:15)
[2021-11-17 12:54] LABS: COVID AG,FIA SOURCE NASOPHARYNGEAL
[2021-11-17 18:37] VITALS: BP 116/80
[2021-11-17] MEDS: ZOLPIDEM TARTRATE 10 MG TABLET PO PRN (22:07)
[2021-11-18 04:24] VITALS: BP 110/86
[2021-11-18] MEDS: LORazepam 2 MG TABLET PO PRN ×3 (05:09→14:11)
[2021-11-18] MEDS: FluPHENAZine HCL 5 MG TABLET PO PRN ×3 (05:09→14:11)
[2021-11-18 08:05] VITALS: BP 106/78
[2021-11-18] MEDS ORDERED: BACITRACIN 28 GM OINTMENT TP PRN (08:15)
[2021-11-18] MEDS ORDERED: ACETAMINOPHEN 325 MG TABLET PO PRN (08:15)
[2021-11-18] MEDS ORDERED: MAG HYDROX/AL HYDROX/SIMETH ES 30 ML SUSPENSION UDCUP PO PRN (08:15)
[2021-11-18] MEDS ORDERED: OMEPRAZOLE 20 MG CAPSULE PO PRN (08:15)
[2021-11-18] MEDS ORDERED: IBUPROFEN 600 MG TABLET PO PRN (08:15)
[2021-11-18] MEDS ORDERED: LOPERAMIDE HCL 2 MG CAPSULE PO PRN (08:15)
[2021-11-18] MEDS ORDERED: MAGNESIUM HYDROXIDE SUSPENSION 30 ML UDCUP PO PRN (08:15)
[2021-11-18] MEDS ORDERED: PETROLATUM,WHITE 28 GM JELLY TP PRN (08:15)
[2021-11-18] MEDS ORDERED: CloNIDine HCL 0.1 MG TABLET PO PRN (08:15)
[2021-11-18] MEDS ORDERED: BENZOCAINE/MENTHOL LOZENGE PO PRN (08:15)
[2021-11-18] MEDS ORDERED: ALBUTEROL SULFATE HFA 90 MCG/PUFF 8 GM INHALER IH PRN (08:15)
[2021-11-18] MEDS ORDERED: ONDANSETRON HCL 4 MG TABLET PO PRN (08:15)
[2021-11-18] MEDS ORDERED: DOCUSATE SODIUM 100 MG CAPSULE PO PRN (08:15)
[2021-11-18 16:01] VITALS: BP 111/75
[2021-11-18] MEDS ORDERED: NICOTINE 14 MG/24 HOUR PATCH TD PRN (16:45)
[2021-11-18] MEDS: ZOLPIDEM TARTRATE 10 MG TABLET PO PRN (20:14)
[2021-11-18] MEDS: OLANZapine 5 MG TABLET PO SCH (21:05)
[2021-11-19 07:09] VITALS: BP 116/80
[2021-11-19] MEDS: LORazepam 2 MG TABLET PO PRN (08:01)
[2021-11-19] MEDS: GABAPENTIN 300 MG CAPSULE PO SCH ×3 (08:01→16:11)
[2021-11-19 08:06] VITALS: BP 128/68
[2021-11-19] MEDS: FluPHENAZine HCL 5 MG TABLET PO PRN (16:11)
[2021-11-19 16:37] VITALS: BP 106/64
[2021-11-19] MEDS: OLANZapine 5 MG TABLET PO SCH (20:11)
[2021-11-19] MEDS: ZOLPIDEM TARTRATE 10 MG TABLET PO PRN (20:11)
[2021-11-20 04:15] VITALS: BP 102/68
[2021-11-20] MEDS: GABAPENTIN 300 MG CAPSULE PO SCH ×3 (08:20→16:51)
[2021-11-20 08:40] VITALS: BP 134/71
[2021-11-20] MEDS: LORazepam 2 MG TABLET PO PRN (12:29)
[2021-11-20] MEDS: FluPHENAZine HCL 5 MG TABLET PO PRN (12:29)
[2021-11-20 16:01] VITALS: BP 110/73
[2021-11-20] MEDS ORDERED: OLANZapine 5 MG TABLET PO SCH (21:00)
[2021-11-21 03:10] VITALS: BP 117/78
[2021-11-21] MEDS: LORazepam 2 MG TABLET PO PRN (08:26)
[2021-11-21] MEDS: FluPHENAZine HCL 5 MG TABLET PO PRN (08:26)
[2021-11-21] MEDS: GABAPENTIN 300 MG CAPSULE PO SCH ×2 (08:26→13:01)
[2021-11-21] MEDS ORDERED: OLAN5TAB52 PO (13:19)
[2021-11-21] MEDS ORDERED: GABA-1181 PO (13:19)
== END 2021-11-21 13:50 | disposition home or self-care (01) | DRG 750 ==
LOC: EMS 11:00 → B3A 15:15
PROVIDERS: ADMIT Psychiatry & Neurology Psychiatry; ATTEND Psychiatry & Neurology Psychiatry
DX: F25.9 Schizoaffective disorder, unspecified (principal); F15.10 Other stimulant abuse, uncomplicated; G47.00 Insomnia, unspecified; K59.00 Constipation, unspecified; F41.9 Anxiety disorder, unspecified; Z20.822 Contact with and (suspected) exposure to COVID-19; Z78.1 Physical restraint status; Z87.891 Personal history of nicotine dependence; Z79.899 Other long term (current) drug therapy; Z88.8 Allergy status to other drugs, medicaments and biological substances
CPT/HCPCS: 99285; J1200; J2060; J3490